=== PATIENT | female | born 1955 | race Caucasian/White ===

== ENCOUNTER → 2022-09-01 | Outpatient (CLI) | payer MEDICARE ==
--- NOTE | 2022-09-01 13:42 | P.PN ---
Subjective DATE: 09/01/2022 FOLLOW UP VISIT. Patient with obstructive sleep apnea hypopnea syndrome return to sleep center for follow-up visit. This is her first visit with a new BPAP unit. Information from previous visit have been reviewed. Patient is using BPAP equipment every night for the whole night, sleeps better with BiPAP and feels better during the day comparing how it was before. [place] sleepiness scale is 4, which is normal. Patient feels leak from the upper part of fullface mask to the eye area. I checked PAP unit. PAP unit pressure maximal inspiratory pressure 19 and minimal expiratory pressure 6, pressure-support 4, average pressure of 18.7 over 14.7 cm H2O. Usage is 100 % for more then 4 hours, average 6.7 hours per night. Leak is 22 l/m, which is in acceptable range. Apnea Hypopnea Index is 20.6, which is increased above normal. MEDICATIONS:1. Methotrexate 2.5 mg 6 times per week 2. Metoprolol 100 mg once a day 3. Losartan/hydrochlorothiazide 50/12.5 mg once a day 4. Celebrex 100 mg once a day 5. Tramadol as needed 6. Vitamins During physical exam: GENERAL: A pleasant patient without any distress. VITAL SIGNS: BP 179/83, HR 73, RR 18 , weight 209.8, temperature 97.2, oxygen saturation at room air 97 % . HEENT: PERRLA, EOMI.low position of soft palate, Mallapati 4 . NECK: Supple. No JVD. LUNGS: Clear to percussion and to auscultation. Good air exchange. No wheezing or rhonchi. HEART: S1, S2 regular. ABDOMEN: Soft and nontender. Obese EXTREMITIES: No clubbing or cyanosis. CLEANER FURNITURE: Awake, alert, and oriented x3. No focal deficit. Impressions: 1. Obstructive sleep apnea-hypopnea syndrome. Patient demonstrated great compliance with treatment, benefiting from treatment. Apnea-hypopnea index still above normal. Some discomfort with air leak related to fullface mask. 2. Obesity. 3. Rheumatoid arthritis. 4. Hypertension. 5. Status post bilateral hip replacement. 6. Status post Covid- and 2020. Plan: 1. Continue using BPAP equipment every night for the whole night. I changed maximal inspiratory pressure to 21 cm H2O. 2. To change air filter at least 1-2 times per month. 3. PAP unit should stay lower then position of the head. 4. Advised patient to remove all remaining water from humidifier canister daily and make it dry after each usage. Refill canister with fresh distilled water before each usage. 5. Sleep hygiene with regular time in bed for at least 8 hours. 6. Precautions related to driving. No driving if feel any sleepiness. 7. I will maintain prescription for PAP supplies including mask, tube, filters. Prescription for different style of fullface mask [employer]. 8. Follow up visit in 2 months or earlier if patient has any problems. 9. Watching and losing weight. Thank you very much for allowing me to participate in the management of your patient. Adalberto Omer MD, PhD, FAASM. Diplomat of [employer], Sleep Medicine Board by [employer] [facility] [place]
== END ==
LOC: SLEEP 13:03
PROVIDERS: ATTEND Internal Medicine
DX: G47.33 Obstructive sleep apnea (adult) (pediatric) (principal); Z99.89 Dependence on other enabling machines and devices; E66.9 Obesity, unspecified; I10 Essential (primary) hypertension; M06.9 Rheumatoid arthritis, unspecified; Z96.643 Presence of artificial hip joint, bilateral; U09.9 Post COVID-19 condition, unspecified
CPT/HCPCS: 99212

== ENCOUNTER → 2023-03-24 | Outpatient (CLI) | payer MEDICARE ==
--- NOTE | 2023-03-24 16:44 | P.PN ---
Subjective DATE: 03/24/2023 FOLLOW UP VISIT. Patient with obstructive sleep apnea hypopnea syndrome return to sleep center for follow-up visit. Information from previous visit have been reviewed. Because of right sided Warren's policy patient was not able to use her CPAP equipment every night. Patient also has some problems related to mask secondary to Warren's policy on the right side. [place] sleepiness scale is 12, which indicate some sleepiness. I checked information from PAP unit. PAP unit pressure maximal inspiratory pressure 21, minimal expiratory pressure 6, pressure-support 4 cm H2O. Usage is 53 % for more then 4 hours, average only 3 hours per night. Leak increased to 35.8 l/m. Apnea Hypopnea Index increased to 14.8, which is better than during previous visit on it was 20.6 after pressure was adjusted during previous visit. Patient feels that sometimes pressures too high for her MEDICATIONS:1. metoprolol 100 mg once a day 2. Losartan /hydrochlorothiazide 50 - 12.5 mg once a day 3. Tramadol During physical exam: GENERAL: A pleasant patient without any distress. VITAL SIGNS: BP 137/90, HR 63, RR 16 , weight 203, temperature 97.1, oxygen saturation at room air 94 % . HEENT: PERRLA, EOMI.low position of soft palate, dropping right side of the mouth , Mallapati 4 . NECK: Supple. No JVD. LUNGS: Clear to percussion and to auscultation. Good air exchange. No wheezing or rhonchi. HEART: S1, S2 regular. ABDOMEN: Soft and nontender.obese EXTREMITIES: No clubbing or cyanosis. PLANT UTILITY PERSON: Awake, alert, and oriented x3. No focal deficit. Impressions: 1. Obstructive sleep apnea-hypopnea syndrome. Patient demonstrated borderline compliance with treatment, benefiting from treatment. 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 3. Obesity. 4. Rheumatoid arthritis. 5. Hypertension. 6. Status post bilateral hip replacement. 7. Status post Covid- 19 in 2020. Plan: 1. Continue using PAP equipment every night for the whole night. I decreased maximal inspiratory pressure to 19 cm of water. 2. To change air filter at least 1-2 times per month. 3. PAP unit should stay lower then position of the head. 4. Advised patient to remove all remaining water from humidifier canister daily and make it dry after each usage. Refill canister with fresh distilled water before each usage. 5. Sleep hygiene with regular time in bed for at least 8 hours. 6. Precautions related to driving. No driving if feel any sleepiness. 7. I will maintain prescription for PAP supplies including mask, tube, filters. 8.Watching and losing weight. 9. Follow up visit in 4 months or earlier if patient has any problems. Thank you very much for allowing me to participate in the management of your patient. Adalberto Omer MD, PhD, FAASM. Diplomat of [employer], Sleep Medicine Board by [employer] Application Performance Engineer of [facility] [place]
== END ==
LOC: 3 N SLEEP 14:29
PROVIDERS: ATTEND Internal Medicine
DX: G47.33 Obstructive sleep apnea (adult) (pediatric) (principal); G51.0 Bell's palsy; Z79.899 Other long term (current) drug therapy; E66.9 Obesity, unspecified; M06.9 Rheumatoid arthritis, unspecified; I10 Essential (primary) hypertension; Z96.643 Presence of artificial hip joint, bilateral; Z99.89 Dependence on other enabling machines and devices; Z86.16 Personal history of COVID-19
CPT/HCPCS: 99212

== ENCOUNTER → 2024-09-05 | Outpatient (CLI) | payer MEDICARE ==
[2024-09-05 16:18] VITALS: BP 135/75; PULSE 84; RESP 16; TEMP 97.7
--- NOTE | 2024-09-05 16:33 | P.PROGSL ---
Subjective DATE: 09/05/2024 FOLLOW UP VISIT. Patient with obstructive sleep apnea hypopnea syndrome return to sleep center for follow-up visit. Information from previous visit have been reviewed. Patient is using PAP equipment every night for the whole night, getting PAP supplies in time. The patient does not have significant problems with the mask, PAP unit and humidification. [place] sleepiness scale is slightly increased to 11. I checked information from PAP unit. PAP unit pressure maximal inspiratory pressure 19, minimal expiratory pressure 6, pressure support 4, average pressure 18.1/14.1 cm H2O. Usage is 100% of nights, average 4 hours per night. Leak is high 64 l/m, which is in acceptable range. Apnea Hypopnea Index is slightly increased to 7.6 average for the last months, which showed significant improvements comparing with previous visit when it was 14.8. Apnea hypopnea index for the last night 1.6 only. MEDICATIONS have been reviewed, please see below. During physical exam: GENERAL: A pleasant patient without any distress. VITAL SIGNS: Please see below, weight is 202 lbs. HEENT: PERRLA, EOMI.low position of soft palate, Mallapati 4 . NECK: Supple. No JVD. LUNGS: Clear to percussion and to auscultation. Good air exchange. No wheezing or rhonchi. HEART: S1, S2 regular. ABDOMEN: Soft and nontender. Obese EXTREMITIES: No clubbing or cyanosis. TOOL/DIE MAKER: Awake, alert, and oriented x3. No focal deficit. Impressions: 1. Obstructive sleep apnea-hypopnea syndrome. Patient demonstrated good compliance with treatment, benefiting from treatment. 2. Obesity, BMI 44.2. 3. Warren's palsy on the right side of the face. 4. Hypertension. 5. History of rheumatoid arthritis. 6. Status post bilateral hip replacement. 7. Status post COVID-19 in 2020. Plan: 1. Continue using PAP equipment every night for the whole night. 2. Sleep hygiene with regular time in bed for at least 7.5-8 hours 3. PAP unit should stay lower then position of the head. 4. Advised patient to remove all remaining water from humidifier canister daily and make it dry after each usage. Refill canister with fresh distilled water before each usage. 5. Watching and losing weight. 6. Precautions related to driving. No driving if feel any sleepiness. 7. I will maintain prescription for PAP supplies including mask, tube, filters. 8. Follow up visit in 6 months or earlier if patient has any problems. Thank you very much for allowing me to participate in the management of your patient. Adalberto Omer MD, PhD, FAASM. Diplomat of [employer], Sleep Medicine Board by [employer] Radiological Technician [facility] [place] Objective - Vital Signs Vital Signs: Vital Signs Temp 97.7 F 09/05/24 16:17 Pulse 84 09/05/24 16:17 Resp 16 09/05/24 16:17 BP 135/75 09/05/24 16:17 Pulse Ox 95 09/05/24 16:17 FiO2 Intake & Output 09/04/24 09/05/24 09/05/24 18:59 06:59 18:59 Weight 91.626 kg Home Medications: Home Medications Medication Instructions Recorded Confirmed Type Albuterol Inhaler [Ventolin Hfa 1 - 2 puff INHALATION Q6H PRN 09/05/24 09/05/24 History Inhaler] Azelastine HCl [Astepro] See Rx Instructions .ROUTE .COMPLEX 09/05/24 09/05/24 History Celecoxib [CeleBREX] 200 mg PO DAILY 09/05/24 09/05/24 History Losartan/Hydrochlorothiazide 50 mg PO DAILY 09/05/24 09/05/24 History [Losartan-Hctz 50-12.5 mg Tab] Metoprolol Tartrate [Lopressor] 100 mg PO DAILY 09/05/24 09/05/24 History Treprostinil Diolamine [Orenitram See Rx Instructions .ROUTE .COMPLEX 09/05/24 09/05/24 History Monthly (0.125 mg) Titration Pack] traMADol HCL 50 mg PO DAILY 09/05/24 09/05/24 History
== END ==
LOC: 3 N SLEEP 15:49
PROVIDERS: ATTEND Internal Medicine
DX: G47.33 Obstructive sleep apnea (adult) (pediatric) (principal); E66.9 Obesity, unspecified; G51.0 Bell's palsy; I10 Essential (primary) hypertension; Z87.39 Personal history of other diseases of the musculoskeletal system and connective tissue; Z86.16 Personal history of COVID-19; Z96.643 Presence of artificial hip joint, bilateral; Z99.89 Dependence on other enabling machines and devices; Z68.41 Body mass index [BMI] 40.0-44.9, adult; Z79.899 Other long term (current) drug therapy
CPT/HCPCS: 99212

== ENCOUNTER → 2025-05-15 | Outpatient (CLI) | payer MEDICARE ==
[2025-05-15 13:38] VITALS: BP 133/83; PULSE 75; RESP 16; TEMP 98.2
--- NOTE | 2025-05-15 14:13 | P.PROGSL ---
Subjective DATE: 05/15/2025 FOLLOW UP VISIT. Patient with obstructive sleep apnea hypopnea syndrome return to sleep center for follow-up visit. Information from previous visit have been reviewed. Patient is using PAP equipment every night for the whole night, getting PAP supplies in time. The patient does not have significant problems with the mask, PAP unit and humidification. [place] sleepiness scale is slightly increased to 11. I checked information from PAP unit. BPAP unit pressure maximal inspiratory pressure 19, minimal expiratory pressure 6, pressure support 4 cm H2O. Usage is 100% for more then 4 hours, average 3.5 hours per night. Leak is 8 l/m, which is in acceptable range. Apnea Hypopnea Index is increased to 17.1, including 0.3 centrals. MEDICATIONS have been reviewed, please see below. During physical exam: GENERAL: A pleasant patient without any distress. VITAL SIGNS: Please see below, weight is 198.2 lbs. HEENT: PERRLA, EOMI.low position of soft palate, Mallapati 4 . NECK: Supple. No JVD. LUNGS: Clear to percussion and to auscultation. HEART: S1, S2 regular. ABDOMEN: Soft and nontender.[] EXTREMITIES: No clubbing or cyanosis. MANAGER FIELD INVESTIGATIONS: Awake, alert, and oriented x3. No focal deficit. Impressions: 1. Obstructive sleep apnea-hypopnea syndrome. Patient demonstrated borderline compliance with treatment, benefiting from treatment. 2. Status post COVID-19 with interstitial lung disease. 3. Hypertension. 4. History of rheumatoid arthritis. 5. History of Warren's palsy. 6. Status post bilateral hip replacement. 7. Obesity BMI 43.6, patient lost 4 pounds comparing with previous visit. I increased maximal inspiratory pressure in BiPAP unit to 21 cm of H2O Plan: 1. Continue using PAP equipment every night for the whole night. 2. Sleep hygiene with regular time in bed for at least 7.5-8 hours 3. PAP unit should stay lower then position of the head. 4. Advised patient to remove all remaining water from humidifier canister daily and make it dry after each usage. Refill canister with fresh distilled water before each usage. 5. Watching and losing weight. 6. Precautions related to driving. No driving if feel any sleepiness. 7. I will maintain prescription for PAP supplies including mask, tube, filters. 8. Follow up visit in 6 months or earlier if patient has any problems. Thank you very much for allowing me to participate in the management of your patient. Adalberto Omer MD, PhD, FAASM. Diplomat of [place] [employer], Sleep Medicine Board by [place] Director Market [employer] [facility] [place] Objective - Vital Signs Vital Signs: Vital Signs Temp 98.2 F 05/15/25 13:37 Pulse 75 05/15/25 13:37 Resp 16 05/15/25 13:37 BP 133/83 05/15/25 13:37 Pulse Ox 94 L 05/15/25 13:37 FiO2 Intake & Output 05/14/25 05/15/25 05/15/25 18:59 06:59 18:59 Weight 89.868 kg Home Medications: Home Medications Medication Instructions Recorded Confirmed Type Albuterol Inhaler [Ventolin Hfa 1 - 2 puff INHALATION Q6H PRN 09/05/24 05/15/25 History Inhaler] Azelastine HCl [Astepro] See Rx Instructions .ROUTE .COMPLEX 09/05/24 05/15/25 History Celecoxib [CeleBREX] 200 mg PO DAILY 09/05/24 05/15/25 History Losartan/Hydrochlorothiazide 50 mg PO DAILY 09/05/24 05/15/25 History [Losartan-Hctz 50-12.5 mg Tab] Metoprolol Tartrate [Lopressor] 100 mg PO DAILY 09/05/24 05/15/25 History Treprostinil Diolamine [Orenitram See Rx Instructions .ROUTE .COMPLEX 09/05/24 05/15/25 History Monthly (0.125 mg) Titration Pack] traMADol HCL 50 mg PO DAILY 09/05/24 05/15/25 History
== END ==
LOC: 3 N SLEEP 13:09
PROVIDERS: ATTEND Internal Medicine
DX: G47.33 Obstructive sleep apnea (adult) (pediatric) (principal); I10 Essential (primary) hypertension; E66.9 Obesity, unspecified; J98.4 Other disorders of lung; U09.9 Post COVID-19 condition, unspecified; Z68.41 Body mass index [BMI] 40.0-44.9, adult; Z99.89 Dependence on other enabling machines and devices; Z96.643 Presence of artificial hip joint, bilateral; Z86.69 Personal history of other diseases of the nervous system and sense organs; Z87.39 Personal history of other diseases of the musculoskeletal system and connective tissue; Z87.09 Personal history of other diseases of the respiratory system
CPT/HCPCS: 99212